=== PATIENT | male | born 1980 | race Caucasian/White ===

== ENCOUNTER 2018-11-25 08:36 | Day surgery (SDC) | payer OTHER ==
[~2018-11-25] VITALS: Ht 182.9 cm; Wt 87.2 kg
[2018-11-25] VITALS (12 sets, daily range): BP systolic 106–128; BP diastolic 62–75; PULSE 65–80; RESP 16–38
[~2018-11-25 08:36] MED LIST: CEFAZOLIN 2 GM/50 ML (PMX) 50 ML IVPB SCH; CEPH500C PO; SOD CHLORIDE 0.9% 1,000 ML IV SCH
[2018-11-25] MEDS ORDERED: LIDOCAINE 1%/EPI (1:100,000) (MDV) 20 ML ONE (12:51)
[2018-11-25] MEDS ORDERED: BUPIVACAINE 0.5%/EPI (SDV) 10 ML INJ ONE (12:51)
[2018-11-25] MEDS ORDERED: LIDOCAINE 2% (SDV) 5 ML INJ ONE (12:56)
[2018-11-25] MEDS ORDERED: FENTAnyl 50 MCG/ML VIAL ONE (12:56)
[2018-11-25] MEDS ORDERED: MIDAZOLAM 1 MG/ML 2 ML INJ ONE (12:56)
[2018-11-25] MEDS ORDERED: DESFLURANE 15 MIN ONE (12:56)
[2018-11-25] MEDS ORDERED: PROPOFOL 20 ML ONE (12:56)
[2018-11-25] MEDS ORDERED: SUGAMMADEX SODIUM 200 MG/2 ML VIAL IV ONE (12:56)
[2018-11-25] MEDS ORDERED: METOCLOPRAMIDE 10 MG INJ ONE (12:56)
[2018-11-25] MEDS ORDERED: ONDANSETRON 4 MG INJ ONE (12:56)
[2018-11-25] MEDS ORDERED: ROCURONIUM 50 MG INJ ONE (12:56)
[2018-11-25] MEDS ORDERED: DEXAMETHASONE 4 MG/ML 5 ML INJ ONE (12:56)
[2018-11-25] MEDS ORDERED: CEFAZOLIN 1 GM INJ ONE (13:23)
[2018-11-25] MEDS ORDERED: FENTAnyl 50 MCG/ML VIAL IV PRN (14:00)
[2018-11-25] MEDS ORDERED: MEPERIDINE 25 MG INJ IV PRN (14:00)
[2018-11-25] MEDS ORDERED: HYDROmorphONE 1 MG/5 ML IV SYRINGE IV PRN (14:00)
[2018-11-25] MEDS ORDERED: PROCHLORPERAZINE 10 MG INJ IV PRN (14:00)
[2018-11-25] MEDS ORDERED: OXYCODONE/ACETAMINOPHEN (5/325) TAB PO PRN (14:00)
[2018-11-25] MEDS ORDERED: ONDANSETRON 4 MG INJ IV PRN ×2 (14:00→15:00)
[2018-11-25] MEDS ORDERED: LACTATED RINGER'S 1,000 ML IV SCH (14:53)
[2018-11-25] MEDS ORDERED: HYDROCODONE/APAP (5/325) TAB PO PRN ×2 (15:00)
[2018-11-25] MEDS ORDERED: morphine 2 MG INJ IV PRN (15:00)
== END 2018-11-25 16:10 | disposition home or self-care (01) ==
LOC: SDS 08:36
DX: L05.91 Pilonidal cyst without abscess (principal)
CPT/HCPCS: 11772; 87070; 87075; 87102; 87116; 88304; J0690; J1100; J2250; J2405; J2765; J3010; Q4118; Z7512; Z7610